=== PATIENT | male | born 1990 ===

== ENCOUNTER 2023-06-09 08:16 | Outpatient (CLI) | payer BC, SELFPAY ==
--- NOTE | 2023-06-14 12:45 | WPDPFTINT ---
PFT Procedure Performed PFT Procedure Performed Plethysmography (Lung Vol) Diffusing Cap (DLCO) Flow Vol Loop Spirometry w/o Bronchodil PFT Interpretation DOS: 06/09/2023 REQUESTING: Dr Brock Niño REASON FOR TESTING: Cystic fibrosis PULMONARY FUNCTION TESTS Results are reliable and reproducible. Spirometry: FEV1 is 2.67 L, 66%, reduced. FVC is 4.52 L, 93% predicted, normal. FEV1/FVC ratio is 59%, reduced, consistent with airflow obstruction. No bronchodilator was administered. Lung volumes: Total lung capacity is 7.24 L, 115%, normal. The slow vital capacity is 4.60 L, 95%, normal. Residual volume is 2.63 L, 176% predicted, increased, consistent with air trapping. RV/TLC is 36%, elevated. Airway resistance is 1.74, 112%, normal. Diffusion: DLCO 26.5, 79%, mildly decreased. DLCO/ VA is 5.79, 110%, normal. Flow volume loop: There is coving of the expiratory limb. IMPRESSION: This study shows a mild obstructive ventilatory impairment with moderate air trapping and mild diffusion impairment. No bronchodilator was administered. There are not prior studies for comparison. Francia Welch MD
== END 2023-06-09 08:17 | disposition home or self-care (01) ==
DX: E84.0 Cystic fibrosis with pulmonary manifestations (principal)
CPT/HCPCS: 94375; 94726; 94729